=== PATIENT | female | born 1940 | race Caucasian/White ===

== ENCOUNTER 2016-11-29 16:41 | Inpatient (IN) | payer OTHER ==
[~2016-11-29] VITALS: Ht 165.1 cm; Wt 85.9 kg
[2016-11-29 17:01] LABS: BASOPHIL COUNT 0.1 K/uL (0-0.1); EOSINOPHIL COUNT 0.3 K/uL (0-0.3); HEMATOCRIT 37.4 % (36.0-46.0); IMMATURE GRANULOCYTE (%) 1.1 % (0.0-0.7); IMMATURE GRANULOCYTE COUNT 0.2 K/uL; INSTRUMENT ABS NEUTROPHIL CT 12.7 K/uL; LYMPHOCYTE COUNT 2.6 K/uL (1.0-2.8); MCH 29.9 PG (29.0-34.0); MCHC 32.1 G/DL (30.0-36.0); MCV 93.3 FL (83-99); MEAN PLAT.VOLUME 10.1 uM^3 (9.5-12.4); MONOCYTE (%) 6.7 % (3-12); MONOCYTE COUNT 1.1 K/uL (0-0.8); NEUTROPHIL (%) 74.5 % (45-76); NEUTROPHIL COUNT 12.7 K/uL (1.8-6.4); PLATELET COUNT 296 K/uL (156-360); RBC DIS.WIDTH-CV 13.9 % (11.8-14.6); RBC DIS.WIDTH-SD 46.7 % (39-53); RED BLOOD COUNT 4.01 M/uL (3.80-5.20)
[2016-11-29 17:12] LABS: AMYLASE 62 IU/L (1-118); CHLORIDE 108 mEq/L (99-109); POTASSIUM 3.6 mEq/L (3.7-5.4); SODIUM 141 mEq/L (136-147)
[2016-11-29 17:14] LABS: GLUCOSE 155 mg/dL (70-99)
[2016-11-29 17:15] LABS: ANION GAP 11 MEQ/L (2-14)
[2016-11-29 17:17] LABS: SERUM ETHYL ALCOHOL < 10 mg/dL
[2016-11-29 17:18] LABS: UREA NITROGEN (BUN) 21 mg/dL (9-23)
[2016-11-29 17:20] LABS: LIPASE 28 U/L (1.0-51.0)
[2016-11-29 17:23] LABS: GFR ESTIMATE (CALCULATED) > 59 mL/min/
[2016-11-29] MEDS ORDERED: TRAMADOL HCL50 MG PO (20:03)
[2016-11-29] MEDS ORDERED: LISINOPRIL20 MG PO (20:04)
[2016-11-29] MEDS ORDERED: ASPIR 8181 M1 PO (20:04)
[2016-11-29] MEDS ORDERED: CARVEDILOL12.5 MG PO ×2 (20:04)
[2016-11-29] MEDS ORDERED: MELOXICAM7.5 MG PO (20:11)
[2016-11-29] MEDS ORDERED: LIPITOR80 MG PO (20:12)
[2016-11-29] MEDS ORDERED: AMLODIPINE BESYL5 MG PO (20:13)
[2016-11-29] MEDS ORDERED: OMEPRAZOLE20 MG PO (20:13)
[2016-11-29] MEDS ORDERED: FISH OIL 1,2001 EAC4 PO (20:14)
[2016-11-29] MEDS ORDERED: FLONASE16 G1 BOTH NARES (20:14)
[2016-11-29] MEDS ORDERED: PROBIOTIC1 EAC1 PO (20:14)
[2016-11-29] MEDS ORDERED: NITROSTAT0.4 MG SL (20:14)
[2016-11-29] MEDS ORDERED: CO Q-10200 MG PO (20:14)
[2016-11-29] MEDS ORDERED: B COMPLEX #11 EACH PO (20:14)
[2016-11-29] MEDS ORDERED: BIOTIN 5000MCG PO (20:15)
[2016-11-29 20:58] LABS: MAGNESIUM 1.4 mg/dL (1.3-2.7)
[2016-11-29 21:01] LABS: INTER. NORMALIZED RATIO 1.2; PROTHROMBIN TIME 13.5 SEC (10.2-12.9)
[2016-11-29 21:03] LABS: PTT 23.5 SEC (25-37)
[2016-11-29 21:05] LABS: HEMATOCRIT 23.2 % (36.0-46.0); MCV 95.9 FL (83-99)
[2016-11-29 21:10] LABS: TROP-I INTERPRETATION NEGATIVE; TROPONIN-I < 0.01 ng/mL (0.0-0.30)
[2016-11-29 21:27] LABS: ADD MIUA? NO; BILIRUBIN NEGATIVE; BLOOD NEGATIVE; COLOR YELLOW ((YELLOW)); GLUCOSE (STRIP) NEGATIVE; KETONES NEGATIVE; LEUKOCYTES NEGATIVE; NITRITE NEGATIVE; PROTEIN (STRIP) NEGATIVE; UCUL ADDED? NO; UROBILINOGEN 0.2 MG/DL (0.2-1.0)
[2016-11-29 21:39] VITALS: BP 79/45
[2016-11-29 21:49] LABS: ADD MEDTOX COMMENT Y; AMPHETAMINE NEGATIVE (500 ng/mL); BARBITURATES NEGATIVE (200 ng/mL); BENZODIAZEPINES NEGATIVE (150 ng/mL); COCAINE NEGATIVE (150 ng/mL); INTERNAL CONTROLS VALID? YES; METHADONE NEGATIVE (200 ng/mL); METHAMPHETAMINE NEGATIVE (500 ng/mL); OPIATES (MORPHINE) PRESUMPTIVE POSITIVE (100 ng/mL); OXYCODONE NEGATIVE (100 ng/mL); PHENCYCLIDINE NEGATIVE (25 ng/mL); PROPOXYPHENE NEGATIVE (300 ng/mL); THC CANNABINOIDS NEGATIVE (50 ng/mL); TRICYCLIC ANTIDEPRESSANTS NEGATIVE (300 ng/mL)
[2016-11-29 21:58] VITALS: BP 68/43
[2016-11-29 22:40] VITALS: BP 99/57
[2016-11-29 23:00] VITALS: BP 85/51
[2016-11-29 23:18] VITALS: BP 85/51
[2016-11-29 23:43] VITALS: BP 77/59
[2016-11-30] VITALS (11 sets, daily range): BP systolic 80–145; BP diastolic 53–98
[2016-11-30 00:06] LABS: METH RESISTANT S AUREUS PCR NEGATIVE (NEGATIVE)
[2016-11-30 00:12] LABS: SPECIMEN PROCESSING CONTROL PASS
[2016-11-30 00:13] LABS: PROBE CHECK PASS
[2016-11-30 03:40] LABS: CHLORIDE 112 mEq/L (99-109); POTASSIUM 4.3 mEq/L (3.7-5.4); SODIUM 140 mEq/L (136-147)
[2016-11-30 03:43] LABS: GLUCOSE 159 mg/dL (70-99)
[2016-11-30 03:44] LABS: ANION GAP 11 MEQ/L (2-14); TOTAL BILIRUBIN 0.6 mg/dL (0.0-1.0)
[2016-11-30 03:46] LABS: ALKALINE PHOSPHATASE 52 IU/L (3-129); GFR ESTIMATE (CALCULATED) > 59 mL/min/
[2016-11-30 03:47] LABS: UREA NITROGEN (BUN) 20 mg/dL (9-23)
[2016-11-30 05:04] LABS: HEMATOCRIT 37.2 % (36.0-46.0)
[2016-11-30 07:04] LABS: HEMATOCRIT 33.3 % (36.0-46.0); MCH 29.7 PG (29.0-34.0); RBC DIS.WIDTH-CV 15.4 % (11.8-14.6); RBC DIS.WIDTH-SD 50.2 % (39-53); WHITE BLOOD COUNT 17.5 K/uL (4.1-10.2)
[2016-11-30 07:28] LABS: MEAN PLAT.VOLUME 10.5 uM^3 (9.5-12.4); PLAT.SUFFICIENCY ADEQUATE
[2016-11-30 07:33] LABS: PLATELET COUNT 197 K/uL (156-360)
[2016-11-30 11:46] LABS: HEMATOCRIT 30.4 % (36.0-46.0); MCV 90.5 FL (83-99)
[2016-11-30 12:15] LABS: ANION GAP 9 MEQ/L (2-14); CHLORIDE 108 MEQ/L (99-109); GFR ESTIMATE (CALCULATED) > 59 mL/min/; GLUCOSE 139 mg/dL (70-99); POTASSIUM 4.1 MEQ/L (3.7-5.4); SAMPLE HEMOLYSIS CHECK 0; SAMPLE ICTERIC CHECK 0; SAMPLE LIPEMIA CHECK 0; SODIUM 141 MEQ/L (136-147); UREA NITROGEN (BUN) 17 mg/dL (9-23)
[2016-12-01 01:00] VITALS: BP 121/77
[2016-12-01 02:30] VITALS: BP 121/60
[2016-12-01 05:12] LABS: HEMATOCRIT 27.7 % (36.0-46.0); MCH 29.5 PG (29.0-34.0); MCHC 32.1 G/DL (30.0-36.0); MCV 91.7 FL (83-99); MEAN PLAT.VOLUME 10.6 uM^3 (9.5-12.4); PLATELET COUNT 187 K/uL (156-360); RBC DIS.WIDTH-CV 15.6 % (11.8-14.6); RBC DIS.WIDTH-SD 51.9 % (39-53); RED BLOOD COUNT 3.02 M/uL (3.80-5.20); WHITE BLOOD COUNT 11.1 K/uL (4.1-10.2)
[2016-12-01 05:45] LABS: ALKALINE PHOSPHATASE 45 IU/L (3-129); ANION GAP 10 MEQ/L (2-14); CHLORIDE 110 MEQ/L (99-109); GFR ESTIMATE (CALCULATED) > 59 mL/min/; GLUCOSE 133 mg/dL (70-99); POTASSIUM 3.9 MEQ/L (3.7-5.4); SAMPLE HEMOLYSIS CHECK 0; SAMPLE ICTERIC CHECK 0; SAMPLE LIPEMIA CHECK 0; SODIUM 144 MEQ/L (136-147); TOTAL BILIRUBIN 0.6 MG/DL (0.0-1.0); UREA NITROGEN (BUN) 14 mg/dL (9-23)
[2016-12-01 07:36] VITALS: BP 140/63
[2016-12-01 11:00] VITALS: BP 139/63
[2016-12-01 15:29] VITALS: BP 163/76
[2016-12-01 20:26] VITALS: BP 130/79
[2016-12-02 05:15] LABS: HEMATOCRIT 24.7 % (36.0-46.0); MCH 30.7 PG (29.0-34.0); MCHC 33.2 G/DL (30.0-36.0); MCV 92.5 FL (83-99); MEAN PLAT.VOLUME 10.5 uM^3 (9.5-12.4); PLATELET COUNT 175 K/uL (156-360); RBC DIS.WIDTH-CV 15.3 % (11.8-14.6); RED BLOOD COUNT 2.67 M/uL (3.80-5.20); WHITE BLOOD COUNT 10.6 K/uL (4.1-10.2)
[2016-12-02 05:42] LABS: ALKALINE PHOSPHATASE 45 IU/L (3-129); ANION GAP 7 MEQ/L (2-14); CHLORIDE 109 MEQ/L (99-109); GFR ESTIMATE (CALCULATED) > 59 mL/min/; GLUCOSE 112 mg/dL (70-99); POTASSIUM 3.8 MEQ/L (3.7-5.4); SAMPLE HEMOLYSIS CHECK 0; SAMPLE ICTERIC CHECK 0; SAMPLE LIPEMIA CHECK 0; SODIUM 142 MEQ/L (136-147); TOTAL BILIRUBIN 0.7 MG/DL (0.0-1.0); UREA NITROGEN (BUN) 11 mg/dL (9-23)
[2016-12-02 08:00] VITALS: BP 119/78
[2016-12-02 11:14] VITALS: BP 117/53
[2016-12-02 16:41] VITALS: BP 161/75
[2016-12-02 20:10] VITALS: BP 159/74
[2016-12-03] VITALS (16 sets, daily range): BP systolic 134–182; BP diastolic 60–114
[2016-12-03 05:26] LABS: HEMATOCRIT 23.9 % (36.0-46.0); MCH 31.1 PG (29.0-34.0); MCHC 33.1 G/DL (30.0-36.0); MCV 94.1 FL (83-99); MEAN PLAT.VOLUME 10.2 uM^3 (9.5-12.4); NRBC (%) 0.2 /100 WBC (0-0); PLATELET COUNT 196 K/uL (156-360); RBC DIS.WIDTH-CV 15.1 % (11.8-14.6); RED BLOOD COUNT 2.54 M/uL (3.80-5.20); WHITE BLOOD COUNT 9.3 K/uL (4.1-10.2)
[2016-12-03 05:44] LABS: ALKALINE PHOSPHATASE 45 IU/L (3-129); ANION GAP 7 MEQ/L (2-14); CHLORIDE 109 MEQ/L (99-109); GFR ESTIMATE (CALCULATED) > 59 mL/min/; GLUCOSE 101 mg/dL (70-99); POTASSIUM 3.6 MEQ/L (3.7-5.4); SAMPLE HEMOLYSIS CHECK 0; SAMPLE ICTERIC CHECK 0; SAMPLE LIPEMIA CHECK 0; SODIUM 144 MEQ/L (136-147); TOTAL BILIRUBIN 0.8 MG/DL (0.0-1.0); UREA NITROGEN (BUN) 11 mg/dL (9-23)
[2016-12-04 04:03] VITALS: BP 134/76
[2016-12-04 07:11] LABS: HEMATOCRIT 33.6 % (36.0-46.0); MCH 30.1 PG (29.0-34.0); MCV 91.1 FL (83-99); MEAN PLAT.VOLUME 9.7 uM^3 (9.5-12.4); NRBC (%) 0.3 /100 WBC (0-0); RBC DIS.WIDTH-CV 15.4 % (11.8-14.6); RBC DIS.WIDTH-SD 48.5 % (39-53); WHITE BLOOD COUNT 9.1 K/uL (4.1-10.2)
[2016-12-04 07:14] LABS: PLATELET COUNT 265 K/uL (156-360); RED BLOOD COUNT 3.69 M/uL (3.80-5.20)
[2016-12-04 07:29] LABS: ALKALINE PHOSPHATASE 60 IU/L (3-129); ANION GAP 7 MEQ/L (2-14); CHLORIDE 110 MEQ/L (99-109); GFR ESTIMATE (CALCULATED) > 59 mL/min/; GLUCOSE 99 mg/dL (70-99); SAMPLE HEMOLYSIS CHECK 0; SAMPLE ICTERIC CHECK 0; SAMPLE LIPEMIA CHECK 0; SODIUM 145 MEQ/L (136-147); UREA NITROGEN (BUN) 11 mg/dL (9-23)
[2016-12-04 07:34] LABS: POTASSIUM 4.4 MEQ/L (3.7-5.4); TOTAL BILIRUBIN 1.4 MG/DL (0.0-1.0)
[2016-12-04 08:11] VITALS: BP 141/79
[2016-12-04 11:40] VITALS: BP 151/79
[2016-12-04 19:18] VITALS: BP 134/88
[2016-12-04 23:32] VITALS: BP 104/57
[2016-12-05 02:57] VITALS: BP 127/74
[2016-12-05 07:30] VITALS: BP 156/81
[2016-12-05 12:01] VITALS: BP 138/72
[2016-12-05 15:53] VITALS: BP 138/70
[2016-12-05 19:40] VITALS: BP 140/67
[2016-12-05 23:14] VITALS: BP 150/86
[2016-12-06 03:52] VITALS: BP 136/67
[2016-12-06 07:48] VITALS: BP 153/74
[2016-12-06 11:51] VITALS: BP 119/66
== END 2016-12-06 16:45 | DRG 511 ==
LOC: EME 16:41 → EDOF 20:23 → 4EAST 20:23 → 4WEST 20:23 → ENRESERV 20:23 → 3EAST 20:23 → ENRESERV 20:44 → 4WEST 22:28 → ENRESERV 12-01 01:10 → 4EAST 12-01 02:16 → CANRESERV 12-01 14:35 → ENRESERV 12-01 14:35 → 3EAST 12-03 20:49
PROVIDERS: Emergency Medicine; Hospitalist; Surgery
PROC: 30233N1 Transfusion of Nonautologous Red Blood Cells into Peripheral Vein, Percutaneous Approach (ICD-10-PCS; principal; 2016-12-03)
PROC: 0PSJ34Z Reposition Left Radius with Internal Fixation Device, Percutaneous Approach (ICD-10-PCS; 2016-12-04)
DX: S52.56 Barton's fracture (principal); S20.01XA Contusion of right breast, initial encounter; V43.52XA Car driver injured in collision with other type car in traffic accident, initial encounter; S22.49XA Multiple fractures of ribs, unspecified side, initial encounter for closed fracture; S30.1XXA Contusion of abdominal wall, initial encounter; S40.029A Contusion of unspecified upper arm, initial encounter; I10 Essential (primary) hypertension; R01.1 Cardiac murmur, unspecified; E66.9 Obesity, unspecified; I25.10 Atherosclerotic heart disease of native coronary artery without angina pectoris; S80.10XA Contusion of unspecified lower leg, initial encounter; E16.2 Hypoglycemia, unspecified; K21.9 Gastro-esophageal reflux disease without esophagitis; E78.5 Hyperlipidemia, unspecified; K44.9 Diaphragmatic hernia without obstruction or gangrene; K57.30 Diverticulosis of large intestine without perforation or abscess without bleeding; Z68.31 Body mass index [BMI] 31.0-31.9, adult; D50.0 Iron deficiency anemia secondary to blood loss (chronic); I25.2 Old myocardial infarction; M19.90 Unspecified osteoarthritis, unspecified site; Z95.5 Presence of coronary angioplasty implant and graft; Z98.51 Tubal ligation status
CPT/HCPCS: 70450; 70498; 71020; 71260; 72125; 72129; 72132; 73110; 74177; 80048; 80048 91; 80053; 81003; 82150; 83690; 83735; 84100; 84484; 84999; 85014; 85018; 85025; 85027; 85610; 85730; 86850; 86900; 86901; 86920; 87641; 93005; 94799; 97530 GO; 99281; 99285; C1713; G0480; J0131; J0690; J2270; J2405; J3010; J3480; J7030; J7120; P9016